=== PATIENT | female | born 1970 | race Caucasian/White ===

== ENCOUNTER 2019-09-25 15:48 | Inpatient (IN) ==
[2019-09-25] MEDS ORDERED: ONDANSETRON 4 MG/2 ML VIAL IV STA (16:32)
[2019-09-25] MEDS ORDERED: METOCLOPRAMIDE 10 MG/2 ML VIAL IV STA (16:32)
[2019-09-25] MEDS ORDERED: ALBUTEROL/IPRATROPIUM 3 ML NEB RESP TX STA (16:32)
[2019-09-25 16:40] LABS: Basophils # 0.1 10*3/uL (0.0-0.2); Basophils % 1.1 % (0.0-0.8); Eosinophils # 0.1 10*3/uL (0.0-0.87); Eosinophils % 2.4 % (0.00-10.9); Hematocrit 37.2 VOL% (35.7-47.0); Hemoglobin 12.5 GM/DL (12.0-16.0); Immature Granulocytes % 0.6 %; Immature Granulocytes Absolute 0.03 #; Mean Corpuscular HGB Conc 33.6 GM/DL (32-36); Mean Corpuscular Volume 94.2 FL (87-102); Monocytes % 3.9 % (1.7-12.7); Platelet Count 199 T/CUMM (130-400); Red Blood Count 3.95 MC/CUMM (3.8-5.5); Red Cell Distribution Width 13.6 % (9.3-17.3); White Blood Count 5.4 T/CUMM (4-12)
[2019-09-25] MEDS ORDERED: methylPREDNISolone SOD SUC 125 MG/2 ML VIAL IV STA (16:56)
[2019-09-25 17:02] LABS: Alanine Aminotransferase 34 U/L (13-56); Albumin 3.3 G/DL (3.4-5.0); Alkaline Phosphatase 100 U/L (45-117); Aspartate Amino Transferase 26 U/L (0-37); Blood Urea Nitrogen 5 MG/DL (7-18); Calcium 8.4 MG/DL (8.5-10.1); Estimated Glom Filtration Rate 96 ML/MIN; Glucose 89 MG/DL (74-106); Total Protein 6.9 G/DL (6.4-8.3); Troponin I < 0.015 NG/ML (0.00-0.045)
[2019-09-25 17:17] LABS: INR 0.9; PT Patient Result 10.1 SECS (9.6-12.2); Partial Thromboplastin Time 29.7 SECS (20.8-36.0)
[2019-09-25 17:23] LABS: Pt O2 Delivery Device Room Air
[2019-09-25 17:27] LABS: ABG Base Excess 2.3 MMOL/L (-2.5-2.5); ABG HCO3 26.5 MMOL/L (20-26); ABG Oxygen Saturation 97.3 % (95-100); ABG PCO2 46.7 MM HG (35-48); ABG PH 7.386 (7.35-7.45); ABG PO2 87.2 MM HG (80-95); ABG TCO2 24.7 MMOL/L (23-27)
[2019-09-25] MEDS ORDERED: DEXTROSE 10% 250 ML BAG IV PRN (19:35)
[2019-09-25] MEDS ORDERED: ONDANSETRON 4 MG/2 ML VIAL IV PRN (19:35)
[2019-09-25] MEDS ORDERED: GLUCAGON 1 MG VIAL IM PRN (19:35)
[2019-09-25 21:00] LABS: Apearance,Urine CLEAR (Clear); Bilirubin,Urine Negative (Negative); Blood, Urine Small mg/dL (Negative); Glucose,Urine (UA) Negative (Negative); Ketones,Urine Negative (Negative); Nitrite,Urine Negative (Negative); Protein,Urine Negative; RBC,Urine 1 /HPF (0-4); Squamous Epithelial Cell,Urine Occasional /HPF (0-10); Urine Color Straw (Yellow); Urine Specific Gravity 1.002 (1.001-1.035); Urine Urobilinogen < 2.0 EU/DL (0.2-1.0); WBC,Urine <1 /HPF (0-6)
[2019-09-25 21:40] LABS: Barbiturates Screen,Urine Negative (Negative); Benzodiazepines Screen,Urine Negative (Negative); Cannabinoid Screen,Urine Negative (Negative); Opiate Screen,Urine Positive (Negative); Phencyclidine Screen,Urine Negative (Negative)
[2019-09-25] MEDS ORDERED: AZITHROMYCIN 250 MG TABLET PO ONE (22:30)
[2019-09-25] MEDS: SODIUM CHLORIDE 0.9% 1,000 ML IV SCH (22:40)
[2019-09-26] MEDS: HYDROXYCHLOROQUINE 200 MG TABLET PO SCH ×2 (00:45→11:27)
[2019-09-26] MEDS ORDERED: ACETAMINOPHEN 325 MG TABLET PO PRN (02:31)
[2019-09-26 06:27] LABS: Basophils % 0.3 % (0.0-0.8); Hematocrit 35.5 VOL% (35.7-47.0); Hemoglobin 12.5 GM/DL (12.0-16.0); Immature Granulocytes % 0.9 %; Immature Granulocytes Absolute 0.06 #; Lymphocytes # 0.9 10*3/uL (1.4-4.0); Lymphocytes % 13.1 % (21.3-54.2); Mean Corpuscular HGB Conc 35.2 GM/DL (32-36); Mean Corpuscular Volume 90.8 FL (87-102); Mean Platelet Volume 9.1 FL (9.6-12.0); Monocytes % 2.7 % (1.7-12.7); Platelet Count 200 T/CUMM (130-400); Red Blood Count 3.91 MC/CUMM (3.8-5.5); Red Cell Distribution Width 13.6 % (9.3-17.3); White Blood Count 6.6 T/CUMM (4-12)
[2019-09-26 06:39] LABS: Calcium 8.7 MG/DL (8.5-10.1); Osmolality,Calculated 270.8 MOS/KG (273-304)
[2019-09-26] MEDS ORDERED: ZINC SULFATE 220 MG CAPSULE PO SCH (09:00)
[2019-09-26] MEDS: FLUoxetine 20 MG CAPSULE PO SCH (11:26)
[2019-09-26] MEDS: PANTOPRAZOLE 40 MG TABLET PO SCH (11:26)
[2019-09-26] MEDS: buPROPion SR 150 MG TABLET PO SCH ×2 (11:26→20:33)
[2019-09-26] MEDS: GABAPENTIN 300 MG CAPSULE PO SCH ×4 (11:26→20:33)
[2019-09-26] MEDS: SODIUM CHLORIDE 0.9% 1,000 ML IV SCH ×2 (11:26→20:32)
[2019-09-26] MEDS ORDERED: CYCLOBENZAPRINE 10 MG TABLET PO PRN (12:54)
[2019-09-26] MEDS ORDERED: oxyCODONE IR 5 MG TABLET PO ONE (13:00)
[2019-09-26] MEDS: HYDROCORTISONE 100 MG VIAL IV SCH (13:56)
[2019-09-26] MEDS: oxyCODONE IR 5 MG TABLET PO SCH (20:33)
[2019-09-26] MEDS ORDERED: traZODone 50 MG TABLET PO SCH (21:00)
[2019-09-26] MEDS ORDERED: HYDROXYCHLOROQUINE 200 MG TABLET PO SCH (21:00)
[2019-09-26] MEDS ORDERED: AZITHROMYCIN 250 MG TABLET PO SCH (21:00)
[2019-09-27] MEDS: HYDROCORTISONE 100 MG VIAL IV SCH ×2 (00:18→13:15)
[2019-09-27] MEDS: oxyCODONE IR 5 MG TABLET PO SCH ×2 (03:42→08:54)
[2019-09-27] MEDS ORDERED: LEVOTHYROXINE 100 MCG TABLET PO SCH (06:30)
[2019-09-27] MEDS: buPROPion SR 150 MG TABLET PO SCH (08:54)
[2019-09-27] MEDS: PANTOPRAZOLE 40 MG TABLET PO SCH (08:54)
[2019-09-27] MEDS: GABAPENTIN 300 MG CAPSULE PO SCH ×2 (08:54→13:15)
[2019-09-27] MEDS: FLUoxetine 20 MG CAPSULE PO SCH (08:54)
[2019-09-27 11:22] LABS: Basophils % 0.4 % (0.0-0.8); Eosinophils % 0.6 % (0.00-10.9); Immature Granulocytes % 0.9 %; Immature Granulocytes Absolute 0.06 #; Lymphocytes # 2.3 10*3/uL (1.4-4.0); Lymphocytes % 33.4 % (21.3-54.2); Mean Corpuscular HGB Conc 33.3 GM/DL (32-36); Mean Corpuscular Volume 94.3 FL (87-102); Mean Platelet Volume 8.9 FL (9.6-12.0); Monocytes % 3.9 % (1.7-12.7); Neutrophils % 60.8 % (38.7-73.9); Platelet Count 195 T/CUMM (130-400); Red Cell Distribution Width 13.7 % (9.3-17.3)
[2019-09-27 11:32] LABS: Calcium 8.3 MG/DL (8.5-10.1); Osmolality,Calculated 278.3 MOS/KG (273-304)
[2019-09-27 11:47] VITALS: BP 135/79
[2019-09-27] MEDS ORDERED: POTASSIUM CHLORIDE 20 MEQ TABLET PO ONE (12:08)
== END 2019-09-27 13:47 | disposition home or self-care (01) | DRG 202 ==
LOC: N.ED 15:48 → N.EDINP 19:35 → N.2E 23:37
PROVIDERS: ADMIT Family Medicine; ATTEND Family Medicine